=== PATIENT | male | born 1990 | race Caucasian/White ===

== ENCOUNTER 2022-01-10 05:12 | Observation (INO) | payer OTHER ==
[~2022-01-10] VITALS: Ht 188 cm; Wt 100.0 kg
[2022-01-10] VITALS (8 sets, daily range): BP systolic 96–110; BP diastolic 53–67; PULSE 53–68; TEMP 98.5
[2022-01-10 05:44] LABS: BASO % 0.5 % (0.0-2.0); EOS % 0.5 % (0.0-4.0); GRAN # 5.2 K/mm3 (1.4-6.5); HEMATOCRIT 42.5 % (42.0-52.0); HEMOGLOBIN 14.3 g/dl (13.5-18.0); LYMPH # 1.9 K/mm3 (1.2-3.4); MEAN CELL VOLUME 87 fl (80.0-100.0); MEAN CORPUSCULAR HEMOGLOBIN 29 pg (27-31); MEAN CORPUSCULAR HGB CONC 34 g/dl (33.0-37.0); MEAN PLATELET VOLUME 9.3 fl (7.4-10.4); MONO # 1.2 K/mm3 (0.1-0.6); MONO % 13.8 % (1.7-9.3); PLATELET COUNT 173 K/mm3 (130-400); RED BLOOD COUNT 4.86 M/mm3 (4.20-5.60); REDCELL DISTRIBUTION WIDTH-CV 12.6 % (11.5-14.5)
[2022-01-10 06:07] LABS: ALBUMIN 4.3 gm/dL (3.5-5.0); BILIRUBIN,TOTAL 0.4 mg/dL (0.2-1.2); CREATININE, serum 1.06 mg/dL (0.72-1.25); POTASSIUM 3.7 mmol/L (3.5-4.5); TOTAL PROTEIN 7.5 gm/dL (6.2-8.1)
[2022-01-10 06:18] LABS: TROPONIN-I 2.796 ng/mL (0.00-0.033)
--- NOTE | 2022-01-10 09:15 | NUR ---
PT ARRIVED FROM [facility], REPORT FROM MIGUEL POND. PT IS STABLE, DENIES PAIN, NO DRAINAGE FROM THE TR BAND TO THE RIGHT RADIAL. HR HAS FLUCTUATED FROM 60'S TO 120'S SEVERAL TIMES WILL CHANGE THE TELEMETRY PADS AND NOTIFIY DR. MARION.
--- NOTE | 2022-01-10 10:50 | NUR ---
PT RADIAL BAND IS LOOSENED BY 2ML, NO BLEEDING OR OOZING AT THIS TIME. SMALL HEMATOMA JUST ABOVE TR BAND. NO CONCERNS AT THIS TIME.
== END 2022-01-10 12:45 | disposition home or self-care (01) ==
LOC: COL.ER 05:12 → MEDICAL 08:00
PROVIDERS: Emergency Medicine; ADMIT Internal Medicine Interventional Cardiology
DX: R07.81 Pleurodynia (principal); R94.31 Abnormal electrocardiogram [ECG] [EKG]
CPT/HCPCS: C1769; G0378; J1644; J1885; J2250; J2405; J3010; Q9967